=== PATIENT | female | born 1990 | race Hispanic/Latino ===

== ENCOUNTER 2022-12-21 02:20 | Emergency (ER) | payer OTHER ==
[~2022-12-21] VITALS: Ht 162.6 cm; Wt 76.7 kg
[2022-12-21] MEDS ORDERED: FAMOTIDINE 20 MG TAB PO STA (03:16)
[2022-12-21] MEDS ORDERED: PREDNISONE 20 MG TAB PO STA (03:16)
[2022-12-21] MEDS ORDERED: HYDROXYZINE HCL 25 MG TAB PO STA (03:16)
[2022-12-21] MEDS ORDERED: PREDNISONE20 MG PO (03:32)
[2022-12-21] MEDS ORDERED: PEPCID20 MG PO (03:32)
== END 2022-12-21 04:25 | disposition home or self-care (01) ==
LOC: ER 02:28
DX: R21 Rash and other nonspecific skin eruption (principal)
CPT/HCPCS: 99282

== ENCOUNTER 2022-12-22 07:52 | Emergency (ER) | payer OTHER ==
[~2022-12-22] VITALS: Ht 162.6 cm; Wt 76.7 kg
[~2022-12-22 07:52] MED LIST: PEPCID20 MG PO; PREDNISONE20 MG PO
[2022-12-22 08:45] LABS: STREPTOCOCCUS GRP A ANTIGEN NEGATIVE (NEGATIVE)
== END 2022-12-22 09:27 | disposition home or self-care (01) ==
LOC: ER 08:02
DX: R21 Rash and other nonspecific skin eruption (principal); B34.9 Viral infection, unspecified; Z20.822 Contact with and (suspected) exposure to COVID-19
CPT/HCPCS: 83518; 87070; 99284; U0002